=== PATIENT | male | born 1990 | race American Indian/Alaskan Native ===

== ENCOUNTER 2019-05-31 04:23 | Emergency (ER) | payer SELFPAY ==
[2019-05-31 05:04] VITALS: BP 113/66
[2019-05-31] MEDS ORDERED: TYLENOL PO ONE (05:11)
== END 2019-05-31 07:27 | disposition left against medical advice (07) ==
LOC: ED 04:23
DX: R51 Headache (principal); Z53.21 Procedure and treatment not carried out due to patient leaving prior to being seen by health care provider